=== PATIENT | male | born 1940 | race Caucasian/White ===

== ENCOUNTER 2018-09-04 11:00 | Emergency (ER) | payer OTHER, MEDICARE ==
[~2018-09-04] VITALS: Ht 182.8 cm; Wt 79.4 kg
--- NOTE | ~2018-09-04 | EKG ---
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
[2018-09-04 11:52] LABS: BASO # 0.1 10*3/uL (0.0-0.1); BASO % 0.6 % (0.0-1.0); EOS # 0.2 10*3/uL (0.0-0.4); EOS % 1.4 % (1.0-4.0); HEMATOCRIT 44.9 % (42.0-52.0); HEMOGLOBIN 15.2 g/dl (14.0-18.0); LYMPH # 1.6 10*3/uL (1.3-4.4); MEAN CELL VOLUME 91.4 fl (80.0-94.0); MEAN CORPUSCULAR HGB CONC 33.9 g/dl (33.0-37.0); MONO # 0.6 10*3/uL (0.1-1.0); MONO % 5.9 % (3.0-9.0); NEUT # 8.2 10*3/uL (2.3-7.9); NEUT % 76.7 % (47.0-73.0); PLATELET COUNT AUTOMATED 184 10*3/uL (130-400); RED BLOOD COUNT 4.91 10*6/uL (4.50-5.90); RED CELL DISTRI WIDTH 13.2 % (0-14.5); WHITE BLOOD COUNT 10.6 10*3/uL (4.8-10.8)
[2018-09-04 12:02] LABS: ACT PARTIAL THROMBO TIME 23.8 SECONDS (20.8-31.5)
[2018-09-04 12:09] LABS: ALBUMIN 3.3 gm/dl (3.1-4.5); ALKALINE PHOSPHATASE 111 U/L (45-117); BUN 22 mg/dl (7-24); CHLORIDE 102 mmol/L (98-107); CREATININE 1.38 mg/dL (0.70-1.30); POTASSIUM 4.8 mmol/L (3.5-5.1); SGOT/AST 17 IU/L (3-35); SGPT/ALT 23 U/L (12-78); SODIUM 141 mmol/L (136-145); TOTAL PROTEIN 7.1 gm/dL (6.4-8.2)
[2018-09-04 12:33] LABS: BILIRUBIN NEGATIVE (NEGATIVE); BLOOD NEGATIVE (NEGATIVE); CLARITY SL CLOUDY (CLEAR); COLOR YELLOW (YELLOW); GLUCOSE NEGATIVE (NEGATIVE); KETONE TRACE (NEGATIVE); LEUKO ESTERASE NEGATIVE (NEGATIVE); NITRITE NEGATIVE (NEGATIVE); SPECIFIC GRAVITY 1.015 (1.005-1.030); UROBILINOGEN 0.2 E.U./dl (0.2-1.0)
[2018-09-04 12:49] LABS: BACTERIA 1+; MUCOUS 1+
== END 2018-09-04 13:17 | disposition home or self-care (01) ==
LOC: ED 11:00
PROVIDERS: Emergency Medicine
DX: R26.89 Other abnormalities of gait and mobility (principal); E11.22 Type 2 diabetes mellitus with diabetic chronic kidney disease; I12.9 Hypertensive chronic kidney disease with stage 1 through stage 4 chronic kidney disease, or unspecified chronic kidney disease; N18.9 Chronic kidney disease, unspecified; F03.90 Unspecified dementia, unspecified severity, without behavioral disturbance, psychotic disturbance, mood disturbance, and anxiety; R05 Cough; R51 Headache; R53.1 Weakness; I25.10 Atherosclerotic heart disease of native coronary artery without angina pectoris; E78.00 Pure hypercholesterolemia, unspecified; Z85.46 Personal history of malignant neoplasm of prostate

== ENCOUNTER 2019-04-26 09:48 | Emergency (ER) | payer OTHER ==
[~2019-04-26] VITALS: Wt 81.6 kg
== END 2019-04-26 11:36 | disposition home or self-care (01) ==
LOC: ED 09:48
DX: S00.93XA Contusion of unspecified part of head, initial encounter (principal); W22.8XXA Striking against or struck by other objects, initial encounter; Y93.89 Activity, other specified; Y92.480 Sidewalk as the place of occurrence of the external cause; Y99.8 Other external cause status

== ENCOUNTER 2019-12-26 11:56 | Observation (INO) | payer OTHER, MEDICARE ==
[~2019-12-26] VITALS: Ht 180.3 cm; Wt 88.5 kg
[2019-12-26 11:56] VITALS: BP 152/88
[2019-12-26 12:21] LABS: BASO # 0.1 10*3/uL (0.0-0.1); BASO % 0.7 % (0.0-1.0); EOS # 0.1 10*3/uL (0.0-0.4); EOS % 1.2 % (1.0-4.0); HEMATOCRIT 41.8 % (42.0-52.0); LYMPH # 1.7 10*3/uL (1.3-4.4); MEAN CELL VOLUME 89.1 fl (80.0-94.0); MEAN CORPUSCULAR HGB 30.5 pg (27.0-31.0); MEAN CORPUSCULAR HGB CONC 34.2 g/dl (33.0-37.0); MEAN PLATELET VOLUME 9.8 fl (9.6-12.3); MONO # 0.7 10*3/uL (0.1-1.0); MONO % 6.8 % (3.0-9.0); NEUT # 7.8 10*3/uL (2.3-7.9); NEUT % 74.9 % (47.0-73.0); PLATELET COUNT AUTOMATED 237 10*3/uL (130-400); RED BLOOD COUNT 4.69 10*6/uL (4.50-5.90); RED CELL DISTRI WIDTH 13.1 % (0-14.5); WHITE BLOOD COUNT 10.4 10*3/uL (4.8-10.8)
[2019-12-26 12:35] LABS: ACT PARTIAL THROMBO TIME 26.3 SECONDS (20.0-32.1)
[2019-12-26 12:39] LABS: ALBUMIN 3.3 gm/dl (3.1-4.5); ALKALINE PHOSPHATASE 111 U/L (45-117); BUN 22 mg/dl (7-24); CHLORIDE 98 mmol/L (98-107); CREATININE 1.65 mg/dL (0.70-1.30); POTASSIUM 5.3 mmol/L (3.5-5.1); SGOT/AST 26 IU/L (3-35); SGPT/ALT 44 U/L (12-78); SODIUM 133 mmol/L (136-145); TOTAL PROTEIN 7.3 gm/dL (6.4-8.2)
[2019-12-26 12:48] LABS: TROPONIN I < 0.015 ng/ml (<0.045)
[2019-12-26 13:04] VITALS: BP 154/90
[2019-12-26 13:25] VITALS: BP 176/96
--- NOTE | 2019-12-26 13:25 | NUR ---
A 79, admitted to 5E, under the services of SCAR Avila DO with a diagnosis of EXERTIONAL DYSPNIA. Chief complaint is HE STATES HE JUST DOESN'T FEEL RIGHT. Patient arrived via stretcher from ER. Monitor applied. Initial assessment completed. Vital signs taken and recorded. SCAR AVILA DO notified of admission to the unit. Orders received. See assessment for past medical history, medications and allergies. Patient and/or family oriented to unit. [address] visitation policy reviewed. Clothing/patient valuable form completed. ADDIE GRAMAJO
[2019-12-26 13:35] VITALS: BP 176/96
[2019-12-26] MEDS ORDERED: ZOLOFT50 MG PO (13:52)
[2019-12-26] MEDS ORDERED: BASAG SOL SQ (13:59)
[2019-12-26] MEDS ORDERED: ARTIFICIAL TEAR1514 OP (14:00)
[2019-12-26] MEDS ORDERED: NORTRIPTYLINE25 MG PO (14:03)
--- NOTE | 2019-12-26 14:34 | NUR ---
MIGDALIA RECEIVED CALL FROM DAUGHTER IN LAW NIRAV. SHE STATED THAT HER MOTHER IN LAW, THE PATIENTS IS UPSET BECAUSE SHE DOES NOT KNOW WHY THE PATIENT WAS ADMITTED TO THIS FACILITY AND NO ONE WILL TELL HER ANYTHING. MIGDALIA EXPLAINED WOULD NEED THE PATIENTS PASSWORD. MIGDALIA OFFERED TO CALL THE PATIENTS TO EXPLAIN, SHE STATED SHE WOULD CALL BACK WITH THE PASSWORD BECAUSE PATIENTS IS VERY HARD OF HEARING.
--- NOTE | 2019-12-26 14:45 | NUR ---
NATHANAEL IN CARDIOLOGY HAS INFORMATION FOR CONSULT .
--- NOTE | 2019-12-26 15:05 | NUR ---
WOOD PLANER RECEIVED CALL BACK FROM DAUGHTER IN LAW. PASSWORD GIVEN. SHE STATED THAT THE PATIENT HAS BECOME INCREASING WORSE SINCE HE HAD THE OPEN HEART SURGERY LAST NOVEMBER(2018). SHE STATED THAT THE PATIENT DOES FALL A LOT, ESPECIALLY WHEN HE BENDS OVER. PER DAUGHTER IN LAW, PATIENT NORMALLY JUST SITS IN A CHAIR ALL DAY AND IS VERY UNSTEADY ON HIS FEET. DAUGHTER IN LAW NIRAV AGAIN STATED THAT PATIENTS WAS NOT TOLD WHY THE PATIENT WAS BEING ADMITTED AND ONLY THAT SHE WOULD NOT BE ALLOWED TO VISIT. WOOD PLANER APOLOGIZED. WOOD PLANER EXPLAINED REASONING FOR THE PATIENT BEING ADMITTED TO THIS FACILITY. NIRAV STATED THAT THE PATIENT IS VERY OLD SCHOOL AND LIKES TO HAVE THINGS TO HIM OR HE WILL NOT WANT TO PARTICIPATE (WOOD PLANER NOTIFIED PT SANDY). PATIENT HAS A HX OF BEING A MARINA IN [place]. PATIENT HAS A HX OF PT AT HOME BUT DISCONTINUED AFTER 2 VISITS. WOOD PLANER MENTIONED [facility] FOR ASSISTANCE, DAUGHTER IN LAW NIRAV WORKS THERE ALREADY AND WILL BE CONSIDERING IT. NIRAV DOES NOT FEEL THE PATIENT WOULD WANT TO GO TO A SNF OR HAVE HOME HEALTH, BUT THEY WILL NOT RULE THAT OUT YET. WOOD PLANER EXPLAINED PT/OT HAS BEEN ORDERED. NIRAV CAN BE CONTACTED AT [phone]. PATIENTS IS VERY [place].
--- NOTE | 2019-12-26 15:20 | NUR ---
Nursing screen received and OT orders. Will follow up with the patient for completion of an OT evaluation. Thank you. Kym García, OTR/L
--- NOTE | 2019-12-26 15:25 | NUR ---
TRIED TO ORDER C-PEPTIDE ON PATIENT FOR DR. PERKINS HOWEVER NEED PREAUTHORIZATION FOR IN PATIENT. DR. PERKINS AWARE AND STATED CALL DR. DUMONT. DR. DUMONT CALLED BUT NO ANSWER. WILL ORDER WHEN APPROVED.
[2019-12-26] MEDS ORDERED: PRILOSEC20 M1 PO (15:54)
[2019-12-26] MEDS ORDERED: METOPROLOL SUCC25 M2 PO (15:55)
[2019-12-26] MEDS ORDERED: MAGNESIUM400 M1 PO (15:56)
[2019-12-26] MEDS ORDERED: ASPIRIN ADULT L81 M1 PO (15:56)
[2019-12-26] MEDS ORDERED: OSTERA TABLET1 EACH PO (15:57)
[2019-12-26] MEDS ORDERED: ARICEPT5 M1 PO (15:58)
[2019-12-26] MEDS ORDERED: LANTUS SOL100 UNIT/1 SQ ×2 (15:59)
[2019-12-26 16:00] VITALS: BP 165/66
--- NOTE | 2019-12-26 18:01 | NUR ---
DR. ALEJANDRA HAS ROUNDED AND ORDERS RECEIVED.
[2019-12-26 20:00] VITALS: BP 156/81
[2019-12-27] VITALS: BP 158/78
[2019-12-27 06:15] LABS: BASO # 0.1 10*3/uL (0.0-0.1); BASO % 0.7 % (0.0-1.0); EOS # 0.2 10*3/uL (0.0-0.4); HEMATOCRIT 38.6 % (42.0-52.0); LYMPH # 1.3 10*3/uL (1.3-4.4); LYMPH % 14.6 % (27.0-41.0); MEAN CORPUSCULAR HGB 30.4 pg (27.0-31.0); MEAN CORPUSCULAR HGB CONC 33.4 g/dl (33.0-37.0); MEAN PLATELET VOLUME 9.9 fl (9.6-12.3); MONO # 0.7 10*3/uL (0.1-1.0); MONO % 8.2 % (3.0-9.0); NEUT # 6.4 10*3/uL (2.3-7.9); PLATELET COUNT AUTOMATED 215 10*3/uL (130-400); RED BLOOD COUNT 4.24 10*6/uL (4.50-5.90); RED CELL DISTRI WIDTH 13.2 % (0-14.5); WHITE BLOOD COUNT 8.7 10*3/uL (4.8-10.8)
[2019-12-27 06:41] LABS: ALBUMIN 2.9 gm/dl (3.1-4.5); ALKALINE PHOSPHATASE 93 U/L (45-117); BUN 20 mg/dl (7-24); CHLORIDE 102 mmol/L (98-107); CHOLESTEROL 193 mg/dL (<200); CREATININE 1.35 mg/dL (0.70-1.30); FREE T4 1.13 ng/dl (0.76-1.46); HDL CHOLESTEROL 34 mg/dl (40-60); LDL CHOLESTEROL 85 mg/dL (9-159); POTASSIUM 4.5 mmol/L (3.5-5.1); SGOT/AST 27 IU/L (3-35); SGPT/ALT 38 U/L (12-78); SODIUM 136 mmol/L (136-145); TOTAL PROTEIN 6.1 gm/dL (6.4-8.2); TRIGLYCERIDES 369 mg/dl (<150); VLDL CHOLESTEROL 74 mg/dL (6-40)
--- NOTE | 2019-12-27 07:36 | NUR ---
PHYSICAL THERAPY Screen and PT eval received will follow thank you Valeria Sam PT
[2019-12-27 08:00] VITALS: BP 148/62
[2019-12-27 08:47] LABS: VITAMIN D, 25-HYDROXY 27.3 ng/mL (30-100)
--- NOTE | 2019-12-27 09:03 | NUR ---
NOTIFIED [facility] OF NEW CONSULT FOR DEPRESSION.
--- NOTE | 2019-12-27 09:45 | NUR ---
Occupational Therapy evaluation completed on five with full evaluation to follow. Recommend occupational therapy per plan of care and SNF vs home with HH pending patient progression upon discharge. Thank you for this referral. Kym García OTR/L
--- NOTE | 2019-12-27 09:45 | NUR ---
PHYSICAL THERAPY Physical Therapy evaluation completed on 5E with full evaluation to follow. Low complexity PT evaluation per chart review and evaluation, [id number]. Recommend physical therapy per plan of care and SNF vs Home Health upon discharge. Thank you for this referral. Jossy Regalado,PT,DPT
--- NOTE | 2019-12-27 09:50 | NUR ---
PT OFF FLOOR VIA WHEELCHAIR FOR STRESS TEST WITH DR ALEJANDRA.
--- NOTE | 2019-12-27 10:12 | NUR ---
MINERAL WOOL INSULATION SUPERVISOR FROM [facility] ROUNDED TO SEE PT. PT WAS CURRENTLY OFF FLOOR IN CARDIAC REHAB.PER MINERAL WOOL INSULATION SUPERVISOR SHE WILL COME BACK AND SEE PT.
--- NOTE | 2019-12-27 10:40 | NUR ---
INFORMED CONSENT OBTAINED FOR LEXISCAN NUCLEAR STRESS TEST WITH DR. ALEJANDRA. RESTING EKG NSR WITH A RESTING HR OF 98 WITH BP OF 144/72. [address] ST DEPRESSION DOWNSLOPING IN LEADS II,III,AVF AND V5-V6. LUNGS CLEAR WITH SPO2 OF 97% ON ROOM AIR. PT COMPLETED A 1:00 LEXISCAN PROTOCOL RECEIVING LEXISCAN 0.4 MG IV OVER 10 SECONDS. HAD NO CHEST PAIN BUT DID C/O FEELING SHORTNESS OF BREATH THAT SUBSIDED IN RECOVERY. EKG NONDIAGNOSTIC. HAD A PEAK HR OF 105 WITH BP OF 118/64. LAST RECOVERY HR OF 100 WITH BP OF 132/72. AWAITING SCANNING IN STABLE CONDITION.
[2019-12-27 12:00] VITALS: BP 143/75
--- NOTE | 2019-12-27 12:56 | NUR ---
CIVIL DESIGNER RECEIVED CALL FROM PATIENTS DAUGHTER IN LAW STATING THE PATIENTS TOLD HER THE PATIENT WAS BEING DISCHARGED AND TO COME GET HIM. MIGDALIA SPOKE WITH WORK MUSEUM TOUR GUIDEJayy GOMEZ WHO STATED PER RN KIERA PATIENT IS LEAVING AMA. CIVIL DESIGNER EXPLAINED THIS TO THE PATIENTS DAUGHTER IN LAW. PER PATIENTS DAUGHTER IN LAW SHE WILL BE CONTACTING HER EMPLOYER-[employer] AND WILL BE DOING AN APS REPORT HERSELF THE PATIENTS IS UNABLE TO CARE FOR THE PATIENT PER HER.
--- NOTE | 2019-12-27 14:12 | NUR ---
Patient signed out AMA. Patient encouraged to stay and advised of possible consequences of premature discharge. Physician MINH PARK and supervisor electrolytic tinning notified. Patient instructed what to do regarding care post-departure from the hospital; emergency phone numbers provided. Patent was accompanied by . CHRISTIANE ECHOLS
== END 2019-12-27 14:12 | disposition left against medical advice (07) ==
LOC: ED 11:56 → 5E 12:55 → EDHOLD 12:55 → 5E 13:13
PROVIDERS: Emergency Medicine; Internal Medicine; ADMIT Family Medicine
DX: R06.00 Dyspnea, unspecified (principal); E87.1 Hypo-osmolality and hyponatremia; E87.5 Hyperkalemia; N17.0 Acute kidney failure with tubular necrosis; F03.90 Unspecified dementia, unspecified severity, without behavioral disturbance, psychotic disturbance, mood disturbance, and anxiety; E11.65 Type 2 diabetes mellitus with hyperglycemia; I10 Essential (primary) hypertension; E78.5 Hyperlipidemia, unspecified; I25.10 Atherosclerotic heart disease of native coronary artery without angina pectoris; E11.22 Type 2 diabetes mellitus with diabetic chronic kidney disease; I12.9 Hypertensive chronic kidney disease with stage 1 through stage 4 chronic kidney disease, or unspecified chronic kidney disease; N18.9 Chronic kidney disease, unspecified; Z79.4 Long term (current) use of insulin